=== PATIENT | female | born 1960 | race Caucasian/White ===

== ENCOUNTER 2017-03-23 13:51 | Emergency (ER) | payer MEDICARE ==
[2014-01-24 17:54] VITALS: BMI 26.6
[~2017-03-23 13:51] MED LIST: ADDERALL 20 MG20 M1 PO; CELEXA40 MG PO; DANTRIUM25 MG PO; EPIPEN0.3 MG/0.3 IM; ESTRACE1 MG PO; HYDROCODONE-APA1 TAB PO; KLONOPIN1 MG PO; LATUDA40 MG PO; LITHIUM CARBON300 MG PO; PRILOSEC20 MG PO; SPIRIVA18 MCG INH; SYNTHROID25 MCG PO; VALTREX1000 MG PO
== END 2017-03-23 17:28 | disposition home or self-care (01) ==
LOC: D.ER 13:51
DX: S91.311A Laceration without foreign body, right foot, initial encounter (principal); W25.XXXA Contact with sharp glass, initial encounter; Y93.89 Activity, other specified; Y92.89 Other specified places as the place of occurrence of the external cause; F17.200 Nicotine dependence, unspecified, uncomplicated

== ENCOUNTER 2017-03-28 14:56 | Emergency (ER) | payer MEDICARE ==
[2014-01-24 17:54] VITALS: BMI 26.6
[2017-03-28 17:07] LABS: BASOPHILS 0.2 % (0-2); EOSINOPHILS 4.9 % (0-7); HEMATOCRIT 33.8 % (36.0-48.0); HEMOGLOBIN 11.1 g/dL (12-16); IMMATURE GRANULOCYTES 0.1 % (0-5); MCH 31.1 pg (26.0-34.0); MCHC 32.8 g/dL (31.0-37.0); MCV 94.7 fL (80.0-100.0); MEAN PLATELET VOLUME 9.7 fL (7.4-10.4); MONOCYTES 4.5 % (2-11); NEUTROPHILS 71.3 % (40-80); PLATELET COUNT 277 10x3/uL (130-400); RBC 3.57 10x6/uL (4.00-5.40); RDW 13.4 % (11.5-14.5); WBC 8.3 10x3/uL (4.8-10.8)
[2017-03-28 17:17] LABS: CALC OSMOLALITY 277 mosm/kg (275-300); CALCIUM 8.9 mg/dL (8.5-10.1); CARBON DIOXIDE 25.5 mmol/L (21.0-32.0); CHLORIDE - SERUM 108 mmol/L (98-107); CREATININE - SERUM 0.8 mg/dL (0.6-1.3); POTASSIUM - SERUM 3.2 mmol/L (3.5-5.1); SODIUM 141 mmol/L (136-145); UREA NITROGEN 6 mg/dL (7-18); eGFR NON AFRICAN AMERICAN 79 mL/min (90-120)
[2017-03-28 17:20] LABS: GLUCOSE 72 mg/dL (74-106)
== END 2017-03-28 20:02 | disposition home or self-care (01) ==
LOC: D.ER 14:56
PROVIDERS: Emergency Medicine
DX: L03.115 Cellulitis of right lower limb (principal); S91.301A Unspecified open wound, right foot, initial encounter; L08.9 Local infection of the skin and subcutaneous tissue, unspecified; X58.XXXA Exposure to other specified factors, initial encounter; Y93.89 Activity, other specified; Y92.89 Other specified places as the place of occurrence of the external cause; E87.6 Hypokalemia

== ENCOUNTER 2018-06-15 17:45 | Emergency (ER) | payer MEDICARE ==
[~2018-06-15] VITALS: Ht 160 cm; Wt 63.6 kg
[2018-06-15 17:47] VITALS: Ht 160 cm; Wt 63.6 kg
[2018-06-15 18:26] LABS: BASOPHILS 0.8 % (0-2); EOSINOPHILS 3.9 % (0-7); HEMATOCRIT 39.4 % (36.0-48.0); HEMOGLOBIN 13.3 g/dL (12-16); IMMATURE GRANULOCYTES 0.1 % (0-5); LYMPHOCYTES 40.2 % (15-50); MCH 30.9 pg (26.0-34.0); MCHC 33.8 g/dL (31.0-37.0); MCV 91.4 fL (80.0-100.0); MEAN PLATELET VOLUME 8.9 fL (7.4-10.4); MONOCYTES 6.8 % (2-11); NEUTROPHILS 48.2 % (40-80); PLATELET COUNT 283 10x3/uL (130-400); RBC 4.31 10x6/uL (4.00-5.40); RDW 13.3 % (11.5-14.5); WBC 7.9 10x3/uL (4.8-10.8)
[2018-06-15 18:43] LABS: ALBUMIN 3.9 g/dL (3.4-5.0); ALKALINE PHOSPHATASE 118 U/L (46-116); ALT (SGPT) 75 U/L (10-68); BILIRUBIN - TOTAL 0.53 mg/dL (0.2-1.3); CALC OSMOLALITY 276 mosm/kg (275-300); CALCIUM 8.9 mg/dL (8.5-10.1); CARBON DIOXIDE 25.5 mmol/L (21.0-32.0); CHLORIDE - SERUM 104 mmol/L (98-107); CREATININE - SERUM 0.6 mg/dL (0.6-1.3); GLUCOSE 96 mg/dL (74-106); PROTEIN - SERUM 7.8 g/dL (6.4-8.2); SODIUM 139 mmol/L (136-145); UREA NITROGEN 11 mg/dL (7-18); eGFR NON AFRICAN AMERICAN > 90 mL/min (90-120)
[2018-06-15 19:47] LABS: UDS - AMPHET NEGATIVE QUAL (NEGATIVE); UDS - BARB NEGATIVE QUAL (NEGATIVE); UDS - BENZO NEGATIVE QUAL (NEGATIVE); UDS - COCAINE NEGATIVE QUAL (NEGATIVE); UDS - OPIATE NEGATIVE QUAL (NEGATIVE); UDS - PCP NEGATIVE QUAL (NEGATIVE); UDS - THC NEGATIVE QUAL (NEGATIVE)
[2018-06-15 19:48] LABS: APPEARANCE CLEAR (CLEAR); BILIRUBIN NEGATIVE (NEGATIVE); COLOR STRAW (YELLOW); GLUCOSE NEGATIVE (NEGATIVE); KETONE NEGATIVE (NEGATIVE); NITRITE NEGATIVE (NEGATIVE); PROTEIN NEGATIVE (NEGATIVE); SPECIFIC GRAVITY 1.005 (1.005-1.020); UROBILINOGEN NORMAL (NORMAL)
[2018-06-15 19:50] LABS: BACTERIA FEW /hpf (NONE SEEN); RED CELLS - URINE 0-5 /hpf (0-5); WHITE CELLS - URINE 0-5 /hpf (0-5)
[2018-06-16 00:27] VITALS: BP 130/77
== END 2018-06-16 00:29 | disposition other institution (70) ==
LOC: D.ER 17:45
PROVIDERS: Family Medicine
DX: R45.851 Suicidal ideations (principal); F17.200 Nicotine dependence, unspecified, uncomplicated

== ENCOUNTER 2018-06-29 22:36 | Observation (INO) | payer MEDICARE ==
[~2018-06-29] VITALS: Ht 160 cm; Wt 68.2 kg
--- NOTE | ~2018-06-29 | HEMODYNAMI ---
PATIENT:SHYAM SHUKLA MEDICAL RECORD: [id number] : 64 LOCATION:[facility] ADMISSION DATE: 06/29/18 Generatedon:06/30/201810:42 Patient name: SHYAM SHUKLA Patient #: [id number] SSN: : Date of study: 06/30/2018 Page: Of Hemodynamic Procedure Report Patient Data Patient Demographics Procedure consent was obtained First Name: SHYAM Gender: Female Last Name: VAZQUEZ : 1960 [facility] Initial: RICARDO Age: 58 year(s) Patient #: [id number] Race: Unknown Additional ID: [id number] Contact details Address: [place] [address] State: [place] City: [place] Zip code: [address] Past Medical History Allergies Allergen Reaction Date Comments Reported Other allergy 06/30/2018 on chart Admission Admission Data Admission Date: 06/29/2018 Admission Time: 23:34 Admit Source: Emergency department Room #: ELIAS02 Lab Results Lab Result Date: 06/30/2018 Lab Result Time: 0:00 Biochemistry Name Units Result Min Max BUN mg/dl 14 --(--*-)-- 7 18 Creatinine mg/dl 0.7 --(*---)-- 0.6 1.3 CBC Name Units Result Min Max Hematocrit % 35.8 *-(----)-- 42 54 Hemoglobin g/dl 12 *-(----)-- 13.5 17.5 Procedure Procedure Types Cath Procedure Diagnostic Procedure LHC LHC w/Coronaries Procedure Description Procedure Date Procedure Date: 06/30/2018 Procedure Start Time: 10:30 Procedure End Time: 10:39 Procedure Staff Name Function Zaki Cedeno MD Performing Physician Yong Perez RT Monitor Lori Burger RT Scrub Nidhi Mccoy RN Nurse Eliseo Bloom RT Selling Underwriter Procedure Data Cath Procedure Fluoroscopy Diagnostic fluoroscopy Total fluoroscopy Time: 1 time: 1 min min Diagnostic fluoroscopy Total fluoroscopy dose: dose: 82.54 mGy 82.54 mGy Contrast Material Contrast Material Type Amount (ml) Isovue 300 43 Entry Location Entry Primary Successful Side Size Upsize Upsize Entry Closure Rodriguez ccessful Closure Location (Fr) 1 (Fr) 2 (Fr) Remarks Device Remarks Radial Right 6 Fr Mechanical artery Short Compression Estimated blood loss: 5 ml Diagnostic catheters Device Type Used For End Catheter Placement DIAGNOSTIC Tifton 110cm 5 Procedure Fr catheter ([id number]) Procedure Complications No complications Procedure Medications Medication Administration Route Dosage Oxygen etCO2 Nasal cannula 2 l/min Lidocaine 2% added to field 20 Heparin Flush Bag added to field 2 bags (1000units/500ml NS) 0.9% NaCl I.V. 100 ml/hr Radial Cocktail I.A. 1 syringe (Verapomil 2mg/Nitro 400mcg/Heparin 1500units) Versed I.V. 2 mg Fentanyl I.V. 100 mcg Versed I.V. 1 mg Fentanyl I.V. 50 mcg Hemodynamics Rest HGB: 12 (g/dl) Heart Rate: 88 (bpm) Snapshots Pre Cath Intra NCS Post Cath Vital Signs Time Heart Resp SPO2 etCO2 NIBP Rhythm Pain Sedation Rate (ipm) (%) (mmHg) (mmHg) Status Level (bpm) 10:21:07 78 14 99 25.3 115/82(91) NSR 0 (11) 10(A) , No pain 10:25:17 87 16 95 40.3 100/74(85) NSR 0 (11) 10(A) , No pain 10:29:23 82 19 94 38 96/76(85) NSR 0 (11) 10(A) , No pain 10:33:27 95 15 94 4.4 104/73(99) NSR 0 (11) 9(A) , No pain 10:37:33 96 15 94 18.6 98/77(86) NSR 0 (11) 9(A) , No pain 10:39:52 91 18 93 35.8 100/69(89) NSR 0 (11) 10(A) , No pain Medications Time Medication Route Dose Verified Delivered Reason Notes Effectiveness by by 10:20:22 Oxygen etCO2 2 l/min Zaki Terrell used for Nasal Pao Mccoy airworthiness inspector cannula 10:20:29 Lidocaine 2% added 20ml Zaki Haines for local to vial Pao Cedeno MD anesthetic field 10:20:35 Heparin Flush added 2 bags Zaki Haines used for Bag to Pao Cedeno MD procedure (1000units/500ml field NS) 10:20:45 0.9% NaCl I.V. 100 Zaki Terrell Per ml/hr Pao Mccoy RN physician 10:29:08 Versed I.V. 2 mg Zaki Terrell for sedation Pao Mccoy RN 10:29:16 Fentanyl I.V. 100 mcg Zaki Terrell for sedation Pao Mccoy RN 10:32:21 Radial Cocktail I.A. 1 Zaki Haines for (Verapomil syringe Pao Cedeno MD vasodilation 2mg/Nitro 400mcg/Heparin 1500units) 10:32:28 Versed I.V. 1 mg Zaki Terrell for sedation Pao Mccoy RN 10:32:34 Fentanyl I.V. 50 mcg Zaki Terrell for sedation Pao Mccoy RN Procedure Log Time Note 9:55:59 Informed consent obtained and on chart 9:56:03 Admit Source: Emergency department 9:56:23 Diagnostic Cath status Elective 9:56:26 Eliseo Bloom RT(R) sent for patient. Start room use. 9:56:27 Time tracking: Regular hours (M-F 7:00 - 5:00) 9:56:30 Plan of Care:Hemodynamics will remain stable., Cardiac rhythm will remain stable., Comfort level will be maintained., Respiratory function will remain adequate., Patient/ family verbilizes understanding of procedure., Procedure tolerated without complication., Recovers from procedure without complications.. 10:08:13 H&P Date Dictated: 06/30/2018 Within 30 days and on chart.. 10:08:18 Patient received from ED to CCL 3 Alert and oriented. Tansferred to table in Supine position. 10:08:19 Warm blankets applied, and israel hugger turned on for patient comfort. 10:08:19 Correct patient and procedure confirmed by team. 10:09:26 ECG and BP/O2 sat monitors applied to patient. 10:20:06 Vital chart was started 10:20:22 Oxygen 2 l/min etCO2 Nasal cannula was administered by Nidhi Mccoy RN; used for procedure; 10:20:29 Lidocaine 2% 20ml vial added to field was administered by Zaki Cedeno MD; for local anesthetic; 10:20:35 Heparin Flush Bag (1000units/500ml NS) 2 bags added to field was administered by Zaki Cedeno MD; used for procedure; 10:20:45 0.9% NaCl 100 ml/hr I.V. was administered by Nidhi Mccoy RN; Per physician; 10:21:42 Baseline sample Acquired. 10::50 Rhythm: sinus rhythm 10::54 Full Disclosure recording started 10::56 Pre-procedure instructions explained to patient. 10::57 Pre-op teaching completed and patient verbalized understanding. 10:22:11 Family unavailable. 10:22:12 Patient NPO since Midnight. 10:25:44 Patient allergic to Other allergyon chart 10:25:46 Is the patient allergic to Iodine/contrast media? No. 10:25:51 Is patient on blood thinner?Yes 10::53 ACC The patient was administered the following blood thiners within the last 24 hours: ACCPlavix 10::57 Patient diabetic? No. 10:26:03 Previous problem with sedation/anesthesia? No ? 10:26:04 Snore? Yes 10:26:07 Sleep apnea? No 10:26:07 Deviated septum? No 10:26:08 Opens mouth fully? Yes 10:26:13 Sticks out tongue? Yes 10:26:15 Airway obstruction? No ? 10:26:20 Dentures? Yes Top in, bottom out. 10:26:36 Pre procedure: right dorsailis pedis pulse 2+ Normal; easily identifiable; not easily obliterated 10:26:37 Modified Royer's test Ulnar < 7 seconds 10:26:39 Patient pain scale 0/10 ?. 10:26:43 IV patent on arrival in left antecubital with 0.9% NaCl at O. 10:26:44 Lab results completed and on chart. 10:26:47 Right Radial & Right Groin area was prepped with chlora-prep and draped in sterile fashion 10::47 Alarms reviewed by R. N. 10:26:48 Sharps counted by scrub and verified by R.N. 10:26:49 Use device set Radial Dx or PCI 10:26:50 ACIST Syringe (02490) opened to sterile field. 10:26:51 Medline Cath Pack ([id number]) opened to sterile field. 10:26:52 Bag Decanter (2001S) opened to sterile field. 10:26:53 ACIST Hand Control (98331) opened to sterile field. 10:26:53 ACIST Manifold (37077) opened to sterile field. 10:26:53 Tegaderm 4 x 4 (1626W) opened to sterile field. 10:26:54 MBrace Wrist Support ([id number]) opened to sterile field. 10:26:57 SHEATH 6FR Slender (41-9930) opened to sterile field. 10:26:57 DIAGNOSTIC WIRE .035 260cm J wire (665585) opened to sterile field. 10:27:03 Physician arrived 10:27:03 --------ALL STOP TIME OUT------ 10:27:03 Final Timeout: patient, procedure, and site verified with staff and physician. All members of the team are in agreement. 10:27:05 Right Radial & Right Groin site verified by team. 10:27:07 Physical assessment completed. ASA score P 2 - A patient with mild systemic disease as per Zaki Cedeno MD. 10:27:10 Sedation plan: IV Moderate Sedation Medication:Versed, Fentanyl 10:29:08 Versed 2 mg I.V. was administered by Nidhi Mccoy RN; for sedation; 10:29:16 Fentanyl 100 mcg I.V. was administered by Nidhi Mccoy RN; for sedation; 10:30:36 Zero performed for pressure channel P1 10:30:47 IV Extension Set opened to sterile field. 10:30:53 Procedure started. 10:30:56 Local anesthetic to right radial artery with Lidocaine 2% by Zaki Cedeno MD.INITIAL ACCESS ONLY 10:31:02 A 6 Fr Short sheath was inserted into the Right Radial artery 10:32:03 A DIAGNOSTIC Tifton 110cm 5 Fr catheter ([id number]) was advanced over the wire and used for Procedure. 10:32:21 Radial Cocktail (Verapomil 2mg/Nitro 400mcg/Heparin 1500units) 1 syringe I.A. was administered by Zaki Cedeno MD; for vasodilation; 10:32:28 Versed 1 mg I.V. was administered by Nidhi Mccoy RN; for sedation; 10:32:31 Lab Result : Creatinine 0.7 mg/dl 10:32: Lab Result : BUN 14 mg/dl 10:: Lab Result : Hemoglobin 12 g/dl 10:: Lab Result : Hematocrit 35.8 % 10:32:34 Fentanyl 50 mcg I.V. was administered by Nidhi Mccoy RN; for sedation; 10:32:34 LV gram done using HONEYCUTT 10:32:36 Injector settings: Ml/sec: 7, Volume: 15, 10:32:38 LV hemodynamics recorded. 10:32:49 EF : 60 % 10:32:58 LCA angiography performed. 10:33:54 RCA angiography performed. 10:34:49 Catheter removed. 10:34:55 TR BAND Standard ([id number]) opened to sterile field. 10:35:05 Sheath removed intact; hemostasis achieved with Mechanical Compression to the Right Radial artery. 10:35:06 Procedure ended.(Physican Out) 10:36:08 Fluoroscopy time 01.00 minutes. 10:36:13 Fluoroscopy dose: 82.54 mGy 10:36:13 Flurop Dose total: 82.54 10:36:18 Contrast amount:Isovue 300 43ml. 10:36:19 Sharps counted by scrub and verified by R.N. 10:36:21 TR band inflated with 11cc of air. 10:36:27 Insertion/operative site no bleeding no hematoma. 10:36:33 Post right radial artery:stable, soft, clean and dry 10:36:37 Post-procedure physical assessment completed. ASA score P 2 - A patient with mild systemic disease as per Zaki Cedeno MD. 10:36:39 Post procedure rhythm: unchanged. 10:36:42 Estimated blood loss: 5 ml 10:36:44 Post procedure instruction explained to patient.Patient verbalizes understanding. 10:36:44 Patient needs reinforcement of post procedure teaching. 10:38:30 Procedure and supply charges have been captured, reviewed, submitted and are correct. 10:38:33 Procedure Complication : No complications 10:38:35 Vital chart was stopped 10:38:35 See physician's report for complete and final results. 10:38:37 Report given to Pre/Post Procedure Room. 10:39:18 Patient transfered to Pre/Post Procedure Room with Stretcher. 10:39:20 Procedure ended. 10:39:20 Full Disclosure recording stopped 10:39:22 End room use (Document Last) Device Usage Item Name Manufacture Quantity Catalog Hospital Part Current Minimal Lot# / Number Charge Number Stock Stock Serial# Code ACIST Acist 1 93410 135573 560842 122426 20 Syringe Medical (37869) Systems Inc Medline Medline 1 [id number] 054868 52496 808912 5 Cath Pack ([id number]) Bag Microtek 1 2001S 546525 69117 524752 5 Decanter Medical Inc. (2001S) ACIST Hand Acist 1 82725 340768 394096 068362 5 Control Medical (48202) Systems Inc ACIST Acist 1 73412 949268 377157 604627 5 Manifold Medical (18837) Systems Inc Tegaderm 4 3M 1 1626W 233304 818246 396663 5 x 4 (1626W) MBrace Advanced 1 140-0250-00 083909 70148 426295 5 Wrist Vascular Support Dynamics ([id number]) SHEATH 6FR Terumo 1 [id number] 825287 111731 372540 40 Slender (80-1060) DIAGNOSTIC St Alhaji 1 479918 483643 529917 369778 30 WIRE .035 260cm J wire (308498) IV Hospira 1 04564-76 145799 78391 208678 5 Extension Set DIAGNOSTIC Terumo 1 40-1189 130782 278725 499290 5 Tifton 110cm 5 Fr catheter (541440) TR BAND Terumo 1 [id number] 268630 773415 244161 40 Standard ([id number]) Signature Audit Gray Stage Time Signature Unsigned Intra-Procedure 06/30/2018 Yong Perez 10:42:16 AM RT(R) Signatures Monitor : Yong Perez RT Signature : Date : Time : [facility] [address] [id number]
--- NOTE | ~2018-06-29 | CN ---
PATIENT NAME:SHYAM RUBALCAVA MEDICAL RECORD: [id number] : 64 LOCATION:[facility].E15- ADMIT DATE: 06/29/18 ACCOUNT: [id number] CONSULTING PHYSICIAN: CATHLEEN PRECIADO MD REFERRING PHYSICIAN: LUZ ELENA PERERA MD DATE OF CONSULTATION: 06/30/2018 DIAGNOSES: 1. Unstable angina. 2. Family history of coronary artery disease. 3. Smoking history. HISTORY OF PRESENT ILLNESS: Ms. Rubalcava presents with anginal symptomatology. She has been having 2 months of chest pain, it has been worsening, got very severe last night. She has continued to have severe episodes of chest pain overnight and this morning. Her EKG is with no acute changes. Her troponin is normal. PHYSICAL EXAMINATION: GENERAL APPEARANCE: Well-nourished, well-developed, appears stated age. Level of distress, comfortable. PSYCHIATRIC: Mental status, alert, normal affect. Orientation, oriented to time, place and person. EYES: Lids and conjunctiva, noninjected. No discharge, no pallor. ENT: Lips, teeth, gums, normal dentition. Oropharynx, no cyanosis, no pallor. NECK: Carotid arteries, bilateral normal upstroke, no bruits, no thrills. JUGULAR VEINS: No jugular venous pressure or distention. CERVICAL LYMPH NODES: Nontender, nonenlarged. THYROID: Not enlarged. Nontender. No nodules. LUNGS: Respiratory effort, unlabored. CHEST: Normal curvature. No thoracic deformity. No chest wall tenderness. Percussion, resonant. Auscultation, clear. No wheezes, no rales, no rhonchi. CARDIOVASCULAR: Precordial exam, nondisplaced. No heaves or pericardial thrills. Rate and rhythm, regular. Heart sounds, normal S1, normal S2. No S3, no gallop, no rub. Systolic murmur, not heard. Diastolic murmur, not heard. EXTREMITIES: No cyanosis, no edema. Peripheral pulses, full and equal in all extremities, except as noted. No bruits appreciated. ABDOMEN: Soft, nondistended. Normal aorta. No bruit. Nontender. No masses. Liver, nontender, no hepatomegaly. Spleen, nontender, no splenomegaly. MUSCULOSKELETAL: No joint tenderness. No joint swelling. No erythema. NEUROLOGICAL: Normal gait, normal strength, normal tone. SKIN: Warm and dry. OVERALL IMPRESSION: Angina in an unstable fashion with continued episodes of chest pain. We will proceed with coronary angiography. Further care depends upon findings of the angiography. TRANSINT:[id number] Voice Confirmation ID: [id number] DOCUMENT ID: [id number] CONSULT REPORT [id number] SHYAM RUBALCAVA JEFFREY MD CC: [id number] DICTATION DATE: 06/30/18830 ORDER DISPATCHER CHIEF: 06/30/18 1001 ADM IN [facility] [address] [id number]
--- NOTE | ~2018-06-29 | OP ---
PATIENT NAME: SHYAM SHUKLA MEDICAL RECORD: [id number] :64 LOCATION:[facility] ADMISSION DATE:06/29/18 SURGEON: CATHLEEN PRECIADO MD DATE OF OPERATION: 06/30/2018 PROCEDURES: 1. Left heart catheterization. 2. Selective coronary angiography. 3. Left ventriculogram. INDICATION: Chest pain compatible with angina. PROCEDURE IN DETAIL: After informed consent was obtained and after a detailed explanation of risks, benefits as well as alternative therapies, the patient elected to proceed with angiogram and heart catheterization. The right radial area was prepped and draped in normal sterile fashion. Right radial artery was cannulated via modified Seldinger technique with placement of 5-Singaporean sheath. All catheters exchanged through this sheath. FINDINGS: Left ventriculogram was performed in standard 30-degree HONEYCUTT view, reveals good cardiac wall motion throughout all segments. Overall ejection fraction estimated at 60%. SELECTIVE CORONARY ANGIOGRAPHY: Left main, left anterior descending, left circumflex, right coronary artery are all smooth-walled vessels with no angiographic evidence of coronary artery disease. OVERALL IMPRESSION: 1. No angiographic evidence of coronary artery disease. 2. Normal left heart pressures. 3. Normal left ventricular systolic function. Chest pain is noncardiac in etiology. No further cardiac workup needs to be ascertained. TRANSINT:[id number] Voice Confirmation ID: [id number] DOCUMENT ID: [id number] CATHLEEN PRECIADO MD CC: [id number] DICTATION DATE: 06/30/18 1039 AIRCRAFT STRUCTURAL REPAIRER: 06/30/18 1249 ADM IN [id number] [place] [address]
[2018-06-29 22:56] VITALS: Ht 160 cm; Wt 68.2 kg
[2018-06-29 23:28] LABS: BASOPHILS 0.5 % (0-2); EOSINOPHILS 5.3 % (0-7); HEMATOCRIT 36.5 % (36.0-48.0); HEMOGLOBIN 12.4 g/dL (12-16); IMMATURE GRANULOCYTES 0.4 % (0-5); LYMPHOCYTES 38.6 % (15-50); MCH 30.8 pg (26.0-34.0); MCV 90.8 fL (80.0-100.0); MEAN PLATELET VOLUME 8.7 fL (7.4-10.4); MONOCYTES 6.2 % (2-11); PLATELET COUNT 303 10x3/uL (130-400); RBC 4.02 10x6/uL (4.00-5.40); RDW 13.1 % (11.5-14.5); WBC 10.1 10x3/uL (4.8-10.8)
[2018-06-29 23:36] LABS: APTT 28.4 SECONDS (22.8-39.4); INR 0.98 (0.85-1.17); PROTIME 12.5 SECONDS (11.6-15.0)
[2018-06-29 23:41] LABS: ALBUMIN 3.3 g/dL (3.4-5.0); ALKALINE PHOSPHATASE 93 U/L (46-116); ALT (SGPT) 18 U/L (10-68); BILIRUBIN - TOTAL 0.21 mg/dL (0.2-1.3); CALC OSMOLALITY 276 mosm/kg (275-300); CALCIUM 8.7 mg/dL (8.5-10.1); CARBON DIOXIDE 27.7 mmol/L (21.0-32.0); CHLORIDE - SERUM 103 mmol/L (98-107); CREATININE - SERUM 0.7 mg/dL (0.6-1.3); GLUCOSE 104 mg/dL (74-106); POTASSIUM - SERUM 4.2 mmol/L (3.5-5.1); PROTEIN - SERUM 7.1 g/dL (6.4-8.2); SODIUM 138 mmol/L (136-145); UREA NITROGEN 15 mg/dL (7-18); eGFR NON AFRICAN AMERICAN > 90 mL/min (90-120)
[2018-06-29 23:54] LABS: CKMB 0.5 U/L (0.0-3.6); CREATINE KINASE 44 UL (21-215); MAGNESIUM - SERUM 1.9 mg/dL (1.8-2.4); TROPONIN-I < 0.017 ng/mL (0.000-0.060)
[2018-06-30] VITALS (15 sets, daily range): BP systolic 111–135; BP diastolic 73–92
[2018-06-30 05:18] LABS: BASOPHILS 0.4 % (0-2); EOSINOPHILS 5.7 % (0-7); HEMATOCRIT 35.8 % (36.0-48.0); IMMATURE GRANULOCYTES 0.1 % (0-5); LYMPHOCYTES 37.3 % (15-50); MCH 30.6 pg (26.0-34.0); MCHC 33.5 g/dL (31.0-37.0); MCV 91.3 fL (80.0-100.0); MEAN PLATELET VOLUME 8.8 fL (7.4-10.4); MONOCYTES 6.4 % (2-11); NEUTROPHILS 50.1 % (40-80); PLATELET COUNT 308 10x3/uL (130-400); RBC 3.92 10x6/uL (4.00-5.40); RDW 13.2 % (11.5-14.5)
[2018-06-30 05:32] LABS: CARBON DIOXIDE 28.6 mmol/L (21.0-32.0)
[2018-06-30 06:07] LABS: ALBUMIN 3.3 g/dL (3.4-5.0); ALKALINE PHOSPHATASE 87 U/L (46-116); ALT (SGPT) 18 U/L (10-68); BILIRUBIN - TOTAL 0.44 mg/dL (0.2-1.3); CALC OSMOLALITY 278 mosm/kg (275-300); CALCIUM 8.7 mg/dL (8.5-10.1); CHLORIDE - SERUM 104 mmol/L (98-107); CKMB 0.7 U/L (0.0-3.6); CREATINE KINASE 39 UL (21-215); CREATININE - SERUM 0.7 mg/dL (0.6-1.3); GLUCOSE 91 mg/dL (74-106); POTASSIUM - SERUM 4.1 mmol/L (3.5-5.1); SODIUM 139 mmol/L (136-145); TROPONIN-I < 0.017 ng/mL (0.000-0.060); UREA NITROGEN 14 mg/dL (7-18); eGFR NON AFRICAN AMERICAN > 90 mL/min (90-120)
[2018-06-30] MEDS ORDERED: THORAZINE25 MG PO (11:00)
[2018-06-30] MEDS ORDERED: KLONOPIN1 MG PO (11:00)
[2018-06-30] MEDS ORDERED: BUSPAR10 MG PO (11:03)
[2018-06-30] MEDS ORDERED: NEURONTIN 300300 MG PO (11:04)
[2018-06-30] MEDS ORDERED: REQUIP5 MG PO (11:04)
[2018-06-30] MEDS ORDERED: CELEXA40 MG PO (11:04)
[2018-06-30] MEDS ORDERED: MOBIC7.5 MG PO (11:05)
[2018-06-30] MEDS ORDERED: OMEPRAZOLE40 MG PO (11:05)
[2018-06-30] MEDS ORDERED: MECLIZINE HCL12.5 MG PO (11:06)
[2018-06-30] MEDS ORDERED: CARAFATE1 G PO (12:35)
== END 2018-06-30 13:14 | disposition home or self-care (01) ==
LOC: D.ER 22:36 → D.EDHOLD 23:34 → D.CLR 23:34 → OBSVTIME 06-30 → D.CLR 06-30 10:00
PROVIDERS: Family Medicine
DX: R07.89 Other chest pain (principal)

== ENCOUNTER 2018-12-05 13:54 | Emergency (ER) | payer MEDICARE ==
[~2018-12-05] VITALS: Ht 160 cm; Wt 67.7 kg
[~2018-12-05 13:54] MED LIST changes: +BUSPAR10 MG PO; +CARAFATE1 G PO; +MECLIZINE HCL12.5 MG PO; +MOBIC7.5 MG PO; +NEURONTIN 300300 MG PO; +OMEPRAZOLE40 MG PO; +REQUIP5 MG PO; +THORAZINE25 MG PO
[2018-12-05 14:15] VITALS: Ht 160 cm; Wt 67.7 kg
[2018-12-05] MEDS ORDERED: ULTRAM50 MG PO (14:21)
[2018-12-05] MEDS ORDERED: ROBAXIN500 MG PO (15:37)
[2018-12-05 17:28] VITALS: BP 110/64
== END 2018-12-05 16:40 | disposition home or self-care (01) ==
LOC: D.ER 13:54
DX: S39.012A Strain of muscle, fascia and tendon of lower back, initial encounter (principal); X58.XXXA Exposure to other specified factors, initial encounter; Y93.89 Activity, other specified; Y92.410 Unspecified street and highway as the place of occurrence of the external cause; M62.838 Other muscle spasm

== ENCOUNTER 2018-12-28 19:07 | Emergency (ER) | payer MEDICARE, MEDICAID ==
[~2018-12-28] VITALS: Ht 160 cm; Wt 70.5 kg
[~2018-12-28 19:07] MED LIST changes: +ROBAXIN500 MG PO; +ULTRAM50 MG PO
[2018-12-28 19:12] VITALS: Ht 160 cm; Wt 70.5 kg
[2018-12-28 19:43] LABS: BASOPHILS 0.5 % (0-2); EOSINOPHILS 7.2 % (0-7); HEMATOCRIT 36.7 % (36.0-48.0); HEMOGLOBIN 12.2 g/dL (12-16); LYMPHOCYTES 40.5 % (15-50); MCH 29.5 pg (26.0-34.0); MCHC 33.2 g/dL (31.0-37.0); MCV 88.6 fL (80.0-100.0); MEAN PLATELET VOLUME 9.3 fL (7.4-10.4); NEUTROPHILS 43.8 % (40-80); PLATELET COUNT 299 10x3/uL (130-400); RBC 4.14 10x6/uL (4.00-5.40); RDW 13.7 % (11.5-14.5); WBC 7.5 10x3/uL (4.8-10.8)
[2018-12-28 19:45] LABS: APPEARANCE SL CLDY (CLEAR); BILIRUBIN NEGATIVE (NEGATIVE); COLOR YELLOW (YELLOW); GLUCOSE NEGATIVE (NEGATIVE); KETONE NEGATIVE (NEGATIVE); NITRITE NEGATIVE (NEGATIVE); PROTEIN NEGATIVE (NEGATIVE); SPECIFIC GRAVITY 1.005 (1.005-1.020); UROBILINOGEN NORMAL (NORMAL)
[2018-12-28 19:50] LABS: BACTERIA MODERATE /hpf (NONE SEEN); RED CELLS - URINE 0-5 /hpf (0-5); WHITE CELLS - URINE 0-5 /hpf (0-5)
[2018-12-28 20:00] LABS: ALBUMIN 3.4 g/dL (3.4-5.0); ALKALINE PHOSPHATASE 240 U/L (46-116); ALT (SGPT) 67 U/L (10-68); BILIRUBIN - TOTAL 0.22 mg/dL (0.2-1.3); CALC OSMOLALITY 269 mosm/kg (275-300); CALCIUM 8.6 mg/dL (8.5-10.1); CARBON DIOXIDE 25.7 mmol/L (21.0-32.0); CHLORIDE - SERUM 101 mmol/L (98-107); CREATININE - SERUM 0.8 mg/dL (0.6-1.3); GLUCOSE 93 mg/dL (74-106); POTASSIUM - SERUM 4.1 mmol/L (3.5-5.1); PROTEIN - SERUM 7.2 g/dL (6.4-8.2); SODIUM 136 mmol/L (136-145); UREA NITROGEN 8 mg/dL (7-18); eGFR NON AFRICAN AMERICAN 78 mL/min (90-120)
[2018-12-28 20:29] LABS: AMYLASE - SERUM 47 U/L (25-115); LIPASE 110 U/L (73-393)
[2018-12-28] MEDS ORDERED: CHRONULAC30 ML PO (21:56)
[2018-12-28 23:06] VITALS: BP 98/66
== END 2018-12-28 23:08 | disposition home or self-care (01) ==
LOC: D.ER 19:07
PROVIDERS: Emergency Medicine
DX: K59.00 Constipation, unspecified (principal)

== ENCOUNTER → 2019-02-21 10:42 | Outpatient (CLI) | payer MEDICARE, MEDICAID ==
[2018-12-28 19:12] VITALS: BMI 27.5
[~2019-02-21 10:42] MED LIST changes: +CHRONULAC30 ML PO
[2019-02-21 12:00] LABS: BASOPHILS 0.6 % (0-2); HEMATOCRIT 37.8 % (36.0-48.0); HEMOGLOBIN 12.8 g/dL (12-16); IMMATURE GRANULOCYTES 0.1 % (0-5); LYMPHOCYTES 39.6 % (15-50); MCH 29.3 pg (26.0-34.0); MCHC 33.9 g/dL (31.0-37.0); MCV 86.5 fL (80.0-100.0); MEAN PLATELET VOLUME 9.4 fL (7.4-10.4); MONOCYTES 6.1 % (2-11); NEUTROPHILS 45.6 % (40-80); PLATELET COUNT 298 10x3/uL (130-400); RBC 4.37 10x6/uL (4.00-5.40); RDW 14.7 % (11.5-14.5); WBC 7.2 10x3/uL (4.8-10.8)
[2019-02-21 13:00] LABS: ALBUMIN 3.4 g/dL (3.4-5.0); ANION GAP 11.7 mmol/L (8-16); BILIRUBIN - TOTAL 0.26 mg/dL (0.2-1.3); CALCIUM 8.7 mg/dL (8.5-10.1); CARBON DIOXIDE 29.8 mmol/L (21.0-32.0); CREATININE - SERUM 0.9 mg/dL (0.6-1.3); POTASSIUM - SERUM 4.5 mmol/L (3.5-5.1)
== END | disposition home or self-care (01) ==
LOC: D.LAB 10:42
PROVIDERS: ATTEND Internal Medicine Gastroenterology
DX: K82.8 Other specified diseases of gallbladder (principal); R94.5 Abnormal results of liver function studies

== ENCOUNTER 2019-03-26 08:00 | Outpatient (CLI) | payer MEDICARE, MEDICAID ==
[2018-12-28 19:12] VITALS: BMI 27.5
== END 2019-03-26 23:59 | disposition home or self-care (01) ==
LOC: D.MAMMO 08:00
PROVIDERS: ATTEND Emergency Medicine
DX: Z12.31 Encounter for screening mammogram for malignant neoplasm of breast (principal)